=== PATIENT | female | born 1985 | race American Indian/Alaskan Native ===

== ENCOUNTER 2016-07-14 15:05 | Emergency (ER) | payer OTHER ==
[2016-07-14 15:10] VITALS: BP 133/78; PULSE 83; TEMP 98.6; BMI 28.1
[2016-07-14] MEDS ORDERED: IBUPROFEN 600 MG TABLET (FP) PO ONE ×2 (15:41→15:51)
--- NOTE | 2016-07-14 15:47 | PDOC ---
History of Present Illness - General Chief Complaint: Injury Stated Complaint: FALL Time Seen by Provider: 07/14/16 15:07 History Source: Patient Exam Limitations: No Limitations - History of Present Illness Initial Comments: 07/14/16 15:52 Chief complaint: Fall on stairs twisting her left ankle unable to bear weight on her left foot due to pain History of present illness: Patient is a 31-year-old female with no significant medical history here today complaining of left medial and anterior and lateral ankle pain with slight tenderness of her left first metatarpal jt after falling today at 2:15 at work on stairs twisting her foot inward. He reports that she was unable to bear weight on her left foot due to severity of pain. Patient reports the pain in her ankle was a 10 out of 10 patient took Tylenol and presently pain is a 9 out of 10. Patient does not affect have any gross deformity noted of her left foot or ankle. Patient denies any numbness of her left foot or ankle. Occurred: reports: this afternoon Severity: Yes: severe (left medial ankle) Lower Extremity Pain Location: left: 1st toe (minimal), ankle (medial ankle/ lateral ) Method of Injury: Yes: fell (at work on stairs today at 2:15 pm ), twisted Modifying Factors: improves with: immobilization, pain medication (tylenol ) Lower Ext. Injury Location - Specific Injury Location Ankle: left pain (left ankle/medial/lateral) Foot: left foot pain (minimal left first toe) Extremity Pain Location - Extremity Pain Location Extremity Pain Locations: left: 1st toe (minimal 1st toe), ankle (medial/lateral /anterior ) Past History - Past Medical History Allergies/Adverse Reactions: Allergies Allergy/AdvReac Type Severity Reaction Status Date / Time No Known Allergies Allergy Verified 07/14/16 15:09 Home Medications: Ambulatory Orders Cyclobenzaprine HCl [Flexeril] 5 mg PO TID #14 tablet 07/02/14 Naproxen [Naprosyn -] 500 mg PO BID #30 tablet 07/02/14 Other medical history: denies - Psycho/Social/Smoking Cessation Hx Anxiety: No Suicidal Ideation: No Smoking History: Never smoked Number of Cigarettes Smoked Daily: 0 Information on smoking cessation initiated: No Hx Alcohol Use: No Drug/Substance Use Hx: No Substance Use Type: None Review of Systems - Review of Systems Able to Perform ROS?: Yes Constitutional: No: Symptoms Reported HEENTM: No: Symptoms Reported Respiratory: No: Symptoms reported Cardiac (ROS): No: Symptoms Reported ABD/GI: No: Symptoms Reported : No: Symptoms Reported Musculoskeletal: Yes: Joint Pain (left medial/anterior/ lateral ankle, left 1 st toe) Integumentary: No: Symptoms Reported Neurological: No: Symptoms reported *Physical Exam - Vital Signs Last Vital Signs Temp Pulse Resp BP Pulse Ox 98.6 F 83 18 133/78 99 07/14/16 15:07 07/14/16 15:07 07/14/16 15:07 07/14/16 15:07 07/14/16 15:07 - Physical Exam General Appearance: Yes: Appropriately Dressed Vascular Pulses: Doralis-Pedis (L): 4+ Extremity: positive: Normal Capillary Refill, Normal Inspection, Tender (left lateral/medial/anterior ankle, minimal pain left 1st mcp jt). negative: Normal Range of Motion (slightly decreased left ankle), Swelling Integumentary: positive: Normal Color (left foot/ankle ) Neurologic: positive: Normal Response, Respond to painful stimul (left foot/ ankle ), Responsive. negative: Numbness, Sensory Deficit (left foot/ankle) Deep Tendon Reflexes: Ankle (L): 4+ Procedures - Consent Consent obtained: From Patient - Splinting Splint Location: Left: Ankle Pre-Made Type: aircast Gabino Bandage: 3" Sling: No Complications: No Post splint xray: No Good repositioning: No Progress: 07/14/16 15:51 crutches for ambulation Medical Decision Making - Medical Decision Making 07/14/16 15:54 Patient is a 31-year-old female with no significant medical history here today complaining of left medial and anterior and lateral ankle pain with slight tenderness of her left first metatarpal jt after falling today at 2:15 at work on stairs twisting her foot inward. He reports that she was unable to bear weight on her left foot due to severity of pain. Patient reports the pain in her ankle was a 10 out of 10 patient took Tylenol and presently pain is a 9 out of 10. Patient does not affect have any gross deformity noted of her left foot or ankle. Patient denies any numbness of her left foot or ankle. r/o fracture left ankle PLAN: xray left foot and ankle ordered by Dr. Lopez no fracture noted Gabino wrap applied to left foot and ankle and Aircast and crutches given Ibuprofen 600 mg by mouth given follow up with ortho *DC/Admit/Observation/Transfer Diagnosis at time of Disposition: Sprain of ankle, left Qualifiers: Encounter type: initial encounter Involved ligament of ankle: unspecified ligament Qualified Code(s): S93.402A - Sprain of unspecified ligament of left ankle, initial encounter - Discharge Dispostion Disposition: HOME Condition at time of disposition: Stable - Referrals Referrals: STAFF,NOT ON [Primary Care Provider] - Calixto Pal MD [Staff Physician] - - Patient Instructions Additional Instructions: Elevate your left leg as much as possible and apply ice as much as possible while awake today and tomorrow Keep Gabino wrap and Aircast on during the day may take off at night and use crutches for ambulation Take ibuprofen as needed as directed by longshore equipment operator for pain Follow-up with orthopedist as soon as possible for further evaluation Patient voiced understanding of discharge instructions and all questions were answered - Post Discharge Activity Work/School Note: Back to Work
== END 2016-07-14 16:19 | disposition home or self-care (01) ==
LOC: JERFT 15:05
PROC: 2W3MX1Z Immobilization of Left Lower Extremity using Splint (ICD-10-PCS; principal; 2016-07-14)
DX: S93.402A Sprain of unspecified ligament of left ankle, initial encounter (principal); X50.1XXA Overexertion from prolonged static or awkward postures, initial encounter; W10.8XXA Fall (on) (from) other stairs and steps, initial encounter; Y93.89 Activity, other specified; Y92.12 Nursing home as the place of occurrence of the external cause; Y99.0 Civilian activity done for income or pay
CPT/HCPCS: 73610-TC-LT; 99281-25